=== PATIENT | female | born 1955 | race Caucasian/White ===

== ENCOUNTER 2018-02-08 11:15 | Inpatient (IN) ==
--- NOTE | 2018-01-31 07:37 | History & Physical Report ---
Date of Encounter: 01/31/18 Time of Encounter: 07:30 24 Hour HP Update - Instructions Instructions: If the History and Physical is less than 30 days old and was completed prior to A.M. admission and or procedure and has NOT been updated on calendar day of procedure please complete this update prior to performing procedure. - Update Patient reports changes in Medical Condition: No Changes in examination, assessment, or condition: No Changes in Medication: No Preop tests/diagnostics Reviewed: Yes Surgery Remains Indicated: Yes Consent for Planned Operative Procedure(s) Verified: Yes - Attending Attestation proceed
--- NOTE | 2018-02-08 08:14 | Discharge Summary ---
Orders not resulted at time of discharge: Pending orders 02/08/18 08:12 XR shoulder complete RT [XR] Routine Date of Encounter: 02/09/18 Time of Encounter: 08:13 - Discharge Diagnosis (1) Right rotator cuff tear arthropathy Priority: Primary Status: Chronic (2) Status post reverse total arthroplasty of right shoulder Priority: Primary Status: Acute (3) Status post foot surgery Priority: Secondary Status: Acute - Hospital Course Hospital course: Ms. Morris is a 62 year old female The patient had an uneventful postoperative course. They received antibiotics and physical therapy and were discharged in stable condition. There will follow -up in the office in 2 weeks. - Time Spent with Patient Total time spent providing and/or coordinating discharge services: - Discharge Medications Home Medications: Cyclobenzaprine HCl 10 mg PO TID 01/31/18 [History] Gabapentin [Neurontin] 300 mg PO BID 01/31/18 [History] Insulin Glargine,Hum.rec.anlog [Basaglar Kwikpen U-100] 54 unit SQ HS 01/31/18 [ History] Metformin HCl [Glucophage Xr] 1,000 mg PO QPM 01/31/18 [History] Ondansetron ODT [Zofran ODT] 4 mg SL Q8HR PRN #15 tab.rapdis 01/31/18 [Rx] Oxycodone HCl/Acetaminophen [Percocet 5-325 mg Tablet] 1 each PO Q4H PRN 5 Days #30 tablet 01/31/18 [Rx] Rivaroxaban [Xarelto] 10 mg PO DAILY #20 tablet 01/31/18 [Rx] Sertraline [Zoloft] 50 mg PO DAILY 01/31/18 [History] OxyCODONE Immed Rel [Roxicodone 5 MG] 5 mg PO Q6HR PRN 4 Days #20 tablet [Rx] Allergies/Adverse Reactions: 3 Allergy/AdvReac Type Severity Reaction Status Date / Time No Known Allergies Allergy Verified 01/26/18 09:31 Primary care physician: Dion Burrell MD - Patient Status Disposition: Home, Self-Care Condition: Good Functional capacity at discharge: wheelchair bound Overall status at discharge: patient is progressing back to baseline - Discharge Instructions Follow Up With: Dion Burrell MD [Primary Care Provider] -
--- NOTE | 2018-02-08 11:04 | Anesthesia Evaluation PreOp ---
Date of Encounter: 02/08/18 Time of Encounter: 11:02 - Past History Planned Operation: Right Total Shoulder Cardiac History: Denies any Significant Hx Pulmonary History: Smoker (30 years), Snore AGRICULTURAL AGENT History: Denies Any Significant HX Other Medical History: Diabetes Type II Anesthesia History: No Prior Anesthetic Complications, Past Anesthesia Alcohol Use: none Drug use: none Medications and Allergies Cyclobenzaprine HCl 10 mg PO DAILY 01/31/18 [History] Gabapentin [Neurontin] 300 mg PO BID 01/31/18 [History] Insulin Glargine,Hum.rec.anlog [Basaglar Kwikpen U-100] 100 unit SQ DAILY [History] Metformin HCl [Glucophage Xr] 1,000 mg PO DAILY 01/31/18 [History] Ondansetron ODT [Zofran ODT] 4 mg SL Q8HR PRN #15 tab.rapdis 01/31/18 [Rx] Oxycodone HCl/Acetaminophen [Percocet 5-325 mg Tablet] 1 each PO Q4H PRN 5 Days #30 tablet 01/31/18 [Rx] Rivaroxaban [Xarelto] 10 mg PO DAILY #20 tablet 01/31/18 [Rx] Sertraline [Zoloft] 50 mg PO DAILY 01/31/18 [History] OxyCODONE Immed Rel [Roxicodone 5 MG] 5 mg PO Q6HR PRN 4 Days #20 tablet [Rx] 3 Allergy/AdvReac Type Severity Reaction Status Date / Time No Known Allergies Allergy Verified 01/26/18 09:31 - Meds/Allergy Pre-op Review Medications Reviewed: Yes Allergies Reviewed: Yes Beta Blockers on Current Med List: No Anesthesia Results - Labs Laboratory Tests 01/26/18 01/26/18 01/26/18 10:09 10:09 10:09 WBC 9.1 Hgb 15.1 Hct 45.0 H Plt Count 325 PT 10.7 INR 1.0 APTT 35.9 Sodium 133 L Potassium 4.2 BUN 13 Creatinine 0.93 - Imaging EKG: report reviewed (01/26/2018 SINUS TACHYCARDIA ABNORMAL RHYTHM ECG) Anesthesia Exam O2 Sat Height 1.68 m Height 1.68 m Height 1.68 m Weight 84.822 kg Weight 84.822 kg Weight 84.822 kg O2 Sat by Pulse Oximetry 95 Vital Signs Temp Pulse Resp BP Pulse Ox 98.1 F 95 18 132/74 95 02/08/18 11:40 02/08/18 11:40 02/08/18 11:40 02/08/18 11:40 02/08/18 11:40 Blood Glucose* 195 Height: 5'6'' Weight: 187 lbs NPO (# of Hours): 8 Pain Scale: 6 (right foot/shoulder) Pain Scale Used: Numeric (1 - 10) - HEENT Pupil (Motor): EOMI Mallampati: III Teeth: Edentulous Denture Type: Upper: Complete, Lower: Complete Oral Opening: Greater than 3 - AGRICULTURAL AGENT LOC: Oriented AGRICULTURAL AGENT Motor: Normal RUE, Normal LUE, Normal RLE, Normal LLE, Normal Face AGRICULTURAL AGENT Sensory: Normal: RUE, LUE, RLE, LLE, Face - Cardiac Rhythm: Regular Murmur: None - Pulmonary Breath Sounds: bilateral Clear Respiratory Effort: Symmetrical Anesthesia Assess/Plan ASA Score: 2 Modified Jemison Scale for Level of Consciousness: Cooperative, oriented, and tranquil Anesthetic Plan: General, Regional Monitoring Plan: Standard Monitors Recovery Plan: PACU
[2018-02-08] MEDS ORDERED: CeFAZolin Syr 2,000MG/20 ML 2,000 MG/20 ML SYRINGE IVPB ONE (11:29)
[2018-02-08] MEDS ORDERED: Ringers Solution, Lactated 1,000 ML IVC SCH ×2 (11:30→15:45)
[2018-02-08] MEDS ORDERED: Albuterol 2.5 MG/3 ML NEBULIZER IH ONE (11:39)
--- NOTE | 2018-02-08 12:30 | History & Physical Report ---
Date of Encounter: 02/08/18 Time of Encounter: 12:30 24 Hour HP Update - Instructions Instructions: If the History and Physical is less than 30 days old and was completed prior to A.M. admission and or procedure and has NOT been updated on calendar day of procedure please complete this update prior to performing procedure. - Update Patient reports changes in Medical Condition: No Changes in examination, assessment, or condition: No Changes in Medication: No Preop tests/diagnostics Reviewed: Yes Surgery Remains Indicated: Yes Consent for Planned Operative Procedure(s) Verified: Yes - Pre-Operative Checklist Preoperative Checklist Indicated: No Prophylactic Antibiotic Ordered: Yes Is VTE Prophylaxis Indicated?: Yes
[2018-02-08] MEDS ORDERED: *HR* Midazolam HCl 2 MG/2 ML VIAL ONE ×3 (13:01→13:38)
[2018-02-08] MEDS ORDERED: *HR* FentaNYL (PF) 100 MCG/2 ML VIAL ONE ×3 (13:02→13:38)
[2018-02-08] MEDS ORDERED: ROPIVACAINE HCL/PF 0.5% 30 ML VIAL ONE (13:02)
[2018-02-08] MEDS ORDERED: Bupivacaine/Clonidine Syringe 1 EACH SYRINGE ONE (13:03)
[2018-02-08] MEDS ORDERED: *HR* Propofol 200 MG/20 ML VIAL IVP ONE ×2 (13:16→13:37)
[2018-02-08] MEDS ORDERED: *HR* OxyCODONE Immed Rel 5 MG TABLET PO PRN (13:19)
[2018-02-08] MEDS ORDERED: *HR* HYDROmorphone (PF) 1 MG/ML SYRINGE IVP PRN (13:19)
[2018-02-08] MEDS ORDERED: *HR* Promethazine 25 MG/ML VIAL IVP PRN (13:19)
[2018-02-08] MEDS ORDERED: Lidocaine -MPF 4% 5 ML AMPUL ONE (13:26)
[2018-02-08] MEDS ORDERED: Ondansetron 4 MG/2 ML VIAL ONE ×3 (13:26→13:38)
[2018-02-08] MEDS ORDERED: Lidocaine -MPF 2% 2 ML VIAL ONE ×2 (13:26→13:37)
--- NOTE | 2018-02-08 13:26 | Anesthesia Procedures ---
Date of Encounter: 02/08/18 Time of Encounter: 13:24 Procedures: Anesthesia - Nerve Block Procedure Date: 02/08/18 Time: 13:24 Allergies/Adv Reactions: nka Surgical Procedure: right tsr Checklist: Correct Patient Identifier, Correct procedure, History checked Correct side: Right Blood Thinner: No Monitor Applied: EKG, BP, Pulse Oximetry Supplemental Oxygen via Nasal Cannula (L/min): 2 Sedation: Versed (mg): 2 Sedation: Fentanyl (mcg): 100 Indication: Post Op Analgesia (request per dr coronado for post op pain control) Pre-op Neuro Deficits: No Block Type: Supraclavicular, Other (scp/icb) Catheter placed: No Sterile Technique: Yes Ultrasound used: Yes Anatomy identified: Yes Visual spread of Local: Yes Neuro Stimulation: No Blood on Needle Aspiration: No Smooth Injection of Local: Yes Pain with Injection of Local: No Prep: Chlorhexadine Needle: 22 x 50 mm Stimuplex Local: 0.25% Bupivicaine w/Clonidine 20 mcg/cc (for scp/icb), Ropivacaine (with 8mg decadron 0.5% 30ml total) Volume (cc): 40 Number of Attempts: 1 Complications: None/effective block Vitals: Vital Signs/O2 Sat/Glucose, Most Current Temp Pulse Resp BP Pulse Ox 02/08/18 13:13 99 18 132/67 92 02/08/18 13:00 91 18 142/78 97 02/08/18 12:50 98.1 F 95 18 132/74 95 02/08/18 12:45 92 18 136/84 95 02/08/18 11:40 98.1 F 95 18 132/74 95 Comments: pt tolerated procedure well. no complications. vss.
[2018-02-08] MEDS ORDERED: Dexamethasone 4 MG/ML VIAL ONE ×2 (13:37→13:38)
[2018-02-08] MEDS ORDERED: *HR* Succinylcholine 200 MG/10 ML VIAL IVP ONE (13:37)
[2018-02-08] MEDS ORDERED: *HR* PHENYLEPHRINE 1,000 MCG/10 ML SYRINGE IVP ONE (14:13)
[2018-02-08] MEDS ORDERED: *HR* Rocuronium Bromide 50 MG/5 ML VIAL ONE (14:17)
[2018-02-08] MEDS ORDERED: Neostigmine Methylsulfate 3 MG/3 ML SYRINGE ONE (14:35)
--- NOTE | 2018-02-08 14:44 | Orthopedic Operative Note ---
Date of procedure: 02/08/18 Pre-op diagnosis: Right shoulder cuff tear arthropathy Post-op diagnosis: same Procedure: Procedure: Total Shoulder Replacment Reverse, right Estimated blood loss: 50 cc Hardware: Metal and polyethylene replacement: Arthrex 24, +2 , 30mm screw glenoid baseplate, 2 4.5 screws. 2 5.5 screw, 39+4 glenosphere, 10 apex humeral stem, poly insert 3 Exam Under anesthesia: Full motion no instability Procedural Notes: Irreparable tear supraspinatus tendon. Operative procedure: The patient was brought to the operating room and placed on the operating room table. After general anesthesia was administered the operative shoulder was examined. Findings were noted. The patient was placed in the modified beachchair position. All pressure points were padded appropriately. And the head was stabilized in the neutral position. The operative extremity was prepped and draped in the sterile surgical fashion. The patient received IV antibiotics prior to skin incision. A standard deltopectoral approach was made to the operative shoulder. Incision was made to the skin and subcutaneous tissue,hemo stasis was obtained with Bovie cautery. Using careful blunt dissection the cephalic vein was identified and mobilized medially. The deltopectoral interval was developed and the clavipectoral fascia was incised. The subscap was released off the lesser tuberosity and tagged with #2 FiberWire suture subscap was irreparable.. The humerus was dislocated patient noted to have irreparable tear supraspinatus tendon, and the humeral cut was made along the anatomic neck. Anterior and posterior Bankart retractors were placed to expose the glenoid. The glenoid guide was seated and the centering hole was made. It was reamed with the appropriate reamer. The 24, +2, 30 mm screw baseplate was seated and secured with (2) 4.5 screws and 2 5.5 screw. The baseplate was irrigated and dried and the 39+4 Glenosphere was seated and secured with the Somers taper. The Somers taper was tested and found to be secure the humerus was redislocated and prepared with the diaphyseal reamers, followed by a broaching process up to the appropriate size 10 apex in the patient's anatomic version. The metaphyseal reamer was then utilized. Trial reduction found the shoulder to be relocatable. Trial components were removed and 10 apex stem was impacted in place in the patient's anatomic version. Trial reduction found the shoulder to be relocatable and stable with the appropriate 3 Trial component was removed and the real implant was seated and secured the shoulder was reduced. The shoulder had excellent motion and excellent stability and no evidence of dislocation. The deep tissue was irrigated with pulse irrigation. The PA close the shoulder. The deltopectoral interval was closed with a running #1 PDS suture, subcutaneous tissue was irrigated and closed with 0 PDS suture, the skin was closed with Dermabond. The patient was placed in a sterile dressing, abduction brace and extubated. The patient was then transferred to the recovery room in stable condition. Anesthesia: GETA Surgeon: Apolinar Khalil Was there an speech language pathology assistant present: No Estimated blood loss (cc): 50 Condition: stable Disposition: PACU
[2018-02-08 15:20] LABS: Hematocrit 42.7 % (35.3-44.9); Hemoglobin 13.4 g/dL (11.5-15.4)
--- NOTE | 2018-02-08 15:34 | Anesthesia Evaluation Post Op ---
Date of Encounter: 02/08/18 Time of Encounter: 15:34 - Vital Signs Vital Signs: Vital Signs/O2 Sat/Glucose, Most Current Temp Pulse Resp BP Pulse Ox 02/08/18 15:21 98.2 F 78 18 120/78 95 02/08/18 15:11 80 16 129/78 94 02/08/18 15:01 83 18 134/72 95 02/08/18 14:51 97.4 F L 88 16 134/82 96 02/08/18 13:38 84 16 133/91 92 02/08/18 13:27 89 18 133/81 92 02/08/18 13:13 99 18 132/67 92 02/08/18 13:00 91 18 142/78 97 02/08/18 12:50 98.1 F 95 18 132/74 95 02/08/18 12:45 92 18 136/84 95 02/08/18 11:40 98.1 F 95 18 132/74 95 - Lungs Lungs: Clear Ascult./Percussion - Airway Airway: Non-obstructed - Cardiovascular Regular Rate, Baseline Rhythm - Mental Status Mental Status: Alert & Oriented, Answers Appropriately - Pain Pain Scale: 0 Pain Scale used: Numeric (1 - 10) - Nausea Vomiting Nausea Vomiting: Not Present - Hydration Hydration: NPO, Has not voided - Discharge PostOp Status: Transfer Patient to floor
[2018-02-08] MEDS ORDERED: MOM Conc 10 ML UD.LIQ PO PRN (15:45)
[2018-02-08] MEDS ORDERED: traMADol 50 MG TABLET PO PRN (15:45)
[2018-02-08] MEDS ORDERED: Ondansetron 4 MG/2 ML VIAL IVP PRN (15:45)
[2018-02-08] MEDS ORDERED: *HR* OxyCODONE/APAP 5/325 TABLET PO PRN (15:45)
[2018-02-08] MEDS ORDERED: Sennosides 8.6 MG TABLET PO PRN (15:45)
[2018-02-08] MEDS ORDERED: Naloxone 0.4 MG/ML INJ IVP PRN (15:45)
[2018-02-08] MEDS ORDERED: D5% in Water 1,000 ML IVC PRN (15:45)
[2018-02-08] MEDS ORDERED: *HR* Dextrose 50 % in Water (Syg) 50 ML SYRINGE IVP PRN (15:45)
[2018-02-08] MEDS ORDERED: Temazepam 15 MG CAPSULE PO PRN (15:45)
[2018-02-08] MEDS ORDERED: Dextrose Gel 15 GM/37.5 ML TUBE PO PRN ×2 (15:45)
[2018-02-08] MEDS: Insulin LISPRO 300 UNITS/3 ML VIAL SQ SCH (17:07)
[2018-02-08] MEDS: *HR* Metformin 500 MG TABLET PO SCH (17:07)
[2018-02-08] MEDS: Gabapentin 300 MG CAPSULE PO SCH (20:27)
[2018-02-08] MEDS: *HR* OxyCODONE Immed Rel 5 MG TABLET PO PRN (20:27)
[2018-02-08] MEDS ORDERED: Insulin DETEMIR 100 UNIT/ML X5UNITS SQ SCH (21:00)
[2018-02-08] MEDS ORDERED: Insulin LISPRO 300 UNITS/3 ML VIAL SQ SCH (21:00)
[2018-02-09 01:05] LABS: Hematocrit 38.1 % (35.3-44.9); Hemoglobin 12.8 g/dL (11.5-15.4)
[2018-02-09] MEDS: *HR* OxyCODONE Immed Rel 5 MG TABLET PO PRN (01:47)
[2018-02-09] MEDS: *HR* OxyCODONE/APAP 5/325 TABLET PO PRN ×2 (05:30→09:55)
--- NOTE | 2018-02-09 06:54 | Orthopedics Progress Note ---
Date of Encounter: 02/09/18 Time of Encounter: 06:54 - Assessment and Plan (1) Right rotator cuff tear arthropathy Current Visit: No Status: Chronic (2) Status post reverse total arthroplasty of right shoulder Current Visit: No Status: Acute (3) Status post foot surgery Current Visit: Yes Status: Acute Subjective Interval history: Patient was seen this morning doing well without complaints. Afebrile vital signs stable. Operative extremity: Neurovascularly intact Dressing clean dry and intact Calves nontender Assessment and plan: Continue with postoperative care Discharge today Objective Vital signs: Vital Signs Temp Pulse Resp BP Pulse Ox 02/09/18 03:22 98.1 F 89 16 103/54 93 02/08/18 22:58 98.5 F 99 16 106/68 93 02/08/18 20:02 98.8 F 98 16 105/73 93 02/08/18 18:43 98.7 F 98 16 130/80 91 02/08/18 17:59 98 F 88 16 127/78 94 02/08/18 16:50 98 F 89 16 122/71 91 02/08/18 16:20 98 F 80 16 124/68 92 02/08/18 15:50 98 F 66 16 125/75 94 02/08/18 15:31 98.2 F 72 14 130/77 94 02/08/18 15:21 98.2 F 78 18 120/78 95 02/08/18 15:11 80 16 129/78 94 02/08/18 15:01 83 18 134/72 95 02/08/18 14:51 97.4 F L 88 16 134/82 96 02/08/18 13:38 84 16 133/91 92 02/08/18 13:27 89 18 133/81 92 02/08/18 13:13 99 18 132/67 92 02/08/18 13:00 91 18 142/78 97 02/08/18 12:50 98.1 F 95 18 132/74 95 02/08/18 12:45 92 18 136/84 95 02/08/18 11:40 98.1 F 95 18 132/74 95 Intake and Output 02/08/18 02/08/18 02/09/18 15:59 23:59 07:59 Intake Total 20 / 20 300 / 300 1580 / 1580 Output Total 50 / 50 0 / 0 300 / 300 Balance -30 / -30 300 / 300 1280 / 1280 Intake: IV Fluids 20 / 20 100 / 100 1100 / 1100 Lactated Ringers 1,000 ML @ 75 1000 / 1000 mls/hr IVC .[id number] [facility] Rx#: [id number] Ancef Syringe 2,000 MG/20 ML 2, 20 / 20 000 mg In 20 ml @ 200 mls/hr IVPB PREOP ONE Rx#:[id number] Ancef 2,000 MG In 0.9 % Sodium 100 / 100 100 / 100 Chloride 100 ML @ 200 mls/hr IVPB Q8H [facility] Rx#:[id number] Oral 200 / 200 480 / 480 Output: Urine 0 / 0 300 / 300 Estimated Blood Loss 50 / 50 Other: # Voids 1 Weight 84.822 kg 84.9 kg Blood Glucose* 140 383 Patient Weight 02/09/18 23:59 Weight 84.9 kg - Labs CBC & BMP: 02/09/18 00:44 Labs: Abnormal lab results POC Glucose 180 mg/dL (70-99) H 02/08/18 16:25 Consult Discharge Plan - Plan Referrals: Dion Burrell MD [Primary Care Provider] -
[2018-02-09] MEDS: *HR* Metformin 500 MG TABLET PO SCH (08:20)
[2018-02-09] MEDS: Gabapentin 300 MG CAPSULE PO SCH (08:20)
[2018-02-09] MEDS: Insulin LISPRO 300 UNITS/3 ML VIAL SQ SCH (08:21)
[2018-02-09] MEDS ORDERED: *HR* Rivaroxaban 10 MG TABLET PO SCH (09:00)
--- NOTE | 2018-02-09 10:30 | Physician Discharge Referral ---
Home Health/Hosp Referral Info Transfer to: Home Health Attending Provider: Remi - Diagnosis (1) Status post reverse total arthroplasty of right shoulder Priority: Primary Status: Acute (2) Right rotator cuff tear arthropathy Priority: Primary Status: Chronic (3) Status post foot surgery Priority: Secondary Status: Acute - Respiratory Orders Smoking Cessation: Smoking cessation has been advised. For more information, call the [place] Tobacco Quit Line at 3-092-AFHW-NOW. - Diet/Nutrition Diet/Nutrition Orders: Regular - Activity Activity Orders: Chair (NWB to RLE due to foot surgery - using wheelchair) - Services Needed Following services are medically necessary services: Nursing, Home Health Aide, Physical Therapy, Occupational Therapy Home Care Orders: Opsite dressing, leave intact until first post-operative visit. Zipline/Bedford in place, plan to remove at post-operative day #14-16. If dressing becomes >50% saturated, contact office, remove dressing and place appropriate dressing in its place. Do not allow for dressing to get wet. Shoulder Precautions x 6 weeks. Apply cold therapy wrap 3-6x/day for 20 minutes at a time. Encourage ambulation throughout the day. Use Incentive spirometer 10x/hour. Elevate affected extremity above heart as tolerated. NWB to affected upper extremity x 6 weeks. Will remove brace at first post-operative appointment. OK to remove during PT/ OT and Home exercises. - Transfer Medications Home Medications: Cyclobenzaprine HCl 10 mg PO TID 01/31/18 [History] Gabapentin [Neurontin] 300 mg PO BID 01/31/18 [History] Insulin Glargine,Hum.rec.anlog [Gloria Bai U-100] 54 unit SQ HS 01/31/18 [ History] Metformin HCl [Glucophage Xr] 1,000 mg PO QPM 01/31/18 [History] Ondansetron ODT [Zofran ODT] 4 mg SL Q8HR PRN #15 tab.rapdis 01/31/18 [Rx] Oxycodone HCl/Acetaminophen [Percocet 5-325 mg Tablet] 1 each PO Q4H PRN 5 Days #30 tablet 01/31/18 [Rx] Rivaroxaban [Xarelto] 10 mg PO DAILY #20 tablet 01/31/18 [Rx] Sertraline [Zoloft] 50 mg PO DAILY 01/31/18 [History] OxyCODONE Immed Rel [Roxicodone 5 MG] 5 mg PO Q6HR PRN 4 Days #20 tablet [Rx] Allergies/Adverse Reactions: 3 Allergy/AdvReac Type Severity Reaction Status Date / Time No Known Allergies Allergy Verified 01/26/18 09:31 Certification: Further, I certify that my clinical findings support that this patient is homebound (i.e. absences from home require considerable and taxing effort and are for medical reasons or [employer] services or infrequently or short duration when for other reasons) because: Homebound Reason: Post-surgery restriction and or conditions limit ability to leave home Attestation: My signature below is to certify that this patient is under my care and that I, or nurse practitioner, or a physician medicine assistant working with me, has a face-to- face encounter with this patient.
[2018-02-09 11:35] VITALS: BP 108/67
--- NOTE | 2018-02-09 16:34 | Event Note ---
Date of Encounter: 02/09/18 Time of Encounter: 12:20 PCR - POD#1 Total Shoulder Replacment Reverse, right 02/08/18 Patient seen at bedside, without complaints. A&O x 3 Afebrile, vital signs stable. Dressings c/d/i, she is NV intact to RUE Labs reviewed. H/H -12.8/38.1 stable, asymptomatic Pain control: adequate Participating in PT. All questions and concerns addressed. Educated on use of incentive spirometer. Encouraged ambulation and proper hydration. Patient educated on post-operative restrictions and post-operative care. Assessment and plan: Continue with postoperative care Discharge plan: Home with home health, discharge today.
== END 2018-02-09 14:24 | disposition home or self-care (01) | DRG 483 ==
LOC: SAMDAY 11:15 → 3NENU 15:42
PROVIDERS: ADMIT Orthopaedic Surgery; ATTEND Orthopaedic Surgery